=== PATIENT | male | born 1955 | race Caucasian/White ===

== ENCOUNTER → 2017-08-13 | Outpatient (CLI) | payer MEDICARE, OTHER ==
[2017-08-13 12:19] LABS: Albumin 4.2 g/dL (3.5-5.0); Potassium 4.2 mmol/L (3.5-5.1); Total Bilirubin 0.7 mg/dL (0.2-1.3); Total Protein 7.1 g/dL (6.3-8.2)
--- NOTE | 2017-08-13 15:33 | XR ---
EXAMINATION TYPE: XR sacroiliac joint comp BILAT DATE OF EXAM: 08/13/2017 COMPARISON: NONE HISTORY: Pain TECHNIQUE: 3 views of the sacroiliac joints are submitted. FINDINGS: There is mild narrowing of the right-sided sacroiliac joint. The left-sided sacroiliac join t appears to be widely patent. No evidence for erosive change or abnormal widening. Sacrum appears to be grossly intact. Bilateral hip prostheses. No bony destructive process. IMPRESSION: Mild degenerative narrowing right SI joint.
--- NOTE | 2017-08-13 15:48 | MR ---
EXAMINATION TYPE: MR cervical spine wo/w con DATE OF EXAM: 08/13/2017 1:50 PM COMPARISON: January 31, 2016 HISTORY: cervicalgia CONTRAST: The patient was injected with 10 mL intravenous Gadavist gadolinium contrast. Multiplanar MultiSpin echo imaging of the cervical spine was performed. C2-C3: No evidence for degenerative disc disease. No disc bulge/herniation or protrusion. No Canal stenosis. Foramina are patent bilaterally. C3-C4: Disc osteophyte complexes noted posterior centrally at this level. Mild effacement ventral the liban sac. Mild distortion ventral cervical spinal cord. No distinct cord signal abnormalities seen. No central stenosis. Mild uncovertebral joint and facet arthropathy narrowing the bilateral neural fora bre. C4-C5: There is evidence of degenerative disc disease. Posterocentral disc bulge and change from prio r study. Mild effacement ventral thecal sac. No evidence for cord contact or central stenosis. Mild r ight neural foraminal encroachment. C5-C6: Postoperative changes of anterior cervical discectomy and fusion. Posterocentral and to the ri ght osteophytic ridging is noted mildly effacing the ventral thecal sac. There is mild right foramina l encroachment. No evidence for central stenosis. C6-C7:there is mild broad-based posterior discussed of a complex with uncovertebral joint and facet a rthropathy which mildly encroaches onto the left neuroforamen. No significant spinal canal stenosis. C7-T1: No evidence for degenerative disc disease. No disc bulge/herniation or protrusion. No Canal stenosis. Foramina are patent bilaterally. No cervical spine fracture. There is normal alignment. Cervical spinal cord is of normal signal. C raniovertebral junction relationships are within normal limits. No pathologic enhancement. IMPRESSION: 1. Again noted are ACDF changes at C5-6. Posterior osteophytic ridging is stable. 2. Stable disc bulging and disc endplate complex as discussed above at C3-4 and C4-5. See above.
--- NOTE | 2017-08-13 16:49 | MR ---
EXAMINATION TYPE: MR lumbar spine wo con DATE OF EXAM: 08/13/2017 COMPARISON: NONE HISTORY: Low back pain CONTRAST: 0 mL intravenous Gadavist. TECHNIQUE: Multiplanar, multisequence images of the lumbar spine were acquired. FINDINGS: Cord terminates at the L1 level. L5-S1: Broad-based disc bulge has mild anterior thecal sac compression. Facet hypertrophy and ligamen cris flavum laxity is present with mild left posterior lateral thecal sac compression. No spinal canal stenosis is present. Neural foramen are patent. L4-L5: Disc uncovering is present. There is facet hypertrophy greater on the left with posterior late ral thecal sac compression. Some impingement of the right foramen is present from facet hypertrophy. No AP spinal canal stenosis is present. L3-L4: Mild disc bulge has anterior thecal sac contact. Facet hypertrophy is present. No spinal canal stenosis is present. There is disc space narrowing. L2-L3: Broad-based disc bulge is present with moderate anterior thecal sac compression. No AP spinal canal stenosis is present. Neural foramen are patent. L1-L2: There is loss of disc height through this level. Broad-based disc bulge has mild anterior thec al sac compression. Central focal bulging has inferior displacement compatible some subligamentous di sc herniation No AP spinal canal stenosis present. Ligamentum flavum laxity and facet hypertrophy is posterior lateral thecal sac compression contributing to some mild canal narrowing. T12-L1: Minimal disc bulge is present with anterior thecal sac contact. No spinal canal stenosis is p resent. Neural foramen are patent. IMPRESSION: 1. Multilevel disc bulging appears greatest at L2-3 with moderate anterior thecal sac compression. 2. Multilevel facet hypertrophy. This is having posterior lateral thecal sac compression at multiple levels. This may be contributing to some canal narrowing at L1-2. 3 loss of disc height L3-4. There i s diffuse disc desiccation throughout the lumbar spine. 3. Findings appear stable from 11/03/2015
== END | disposition home or self-care (01) ==
LOC: RADMRIMAIN 11:42
PROVIDERS: ATTEND Anesthesiology Pain Medicine
DX: M99.71 Connective tissue and disc stenosis of intervertebral foramina of cervical region (principal); M50.221 Other cervical disc displacement at C4-C5 level; M50.321 Other cervical disc degeneration at C4-C5 level; M46.92 Unspecified inflammatory spondylopathy, cervical region; M51.16 Intervertebral disc disorders with radiculopathy, lumbar region; G95.29 Other cord compression; M53.3 Sacrococcygeal disorders, not elsewhere classified; M62.830 Muscle spasm of back; S39.012D Strain of muscle, fascia and tendon of lower back, subsequent encounter; Z98.890 Other specified postprocedural states; Z79.891 Long term (current) use of opiate analgesic
CPT/HCPCS: 80053; 72202; 72148; 72156; 36415; A9581

== ENCOUNTER → 2018-10-20 | Outpatient (CLI) | payer MEDICARE, OTHER ==
--- NOTE | 2018-10-20 13:25 | MR ---
EXAMINATION TYPE: MR lumbar spine wo con DATE OF EXAM: 10/20/2018 COMPARISON: 11/03/2015 HISTORY: Low bck pain TECHNIQUE: T1 and T2 axial and sagittal images of the lumbar spine are submitted. FINDINGS: There is no abnormal signal seen within the visualized spinal cord or paraspinal soft tissu es. At T12-L1 there is severe degenerative disc disease and broad-based central disc bulging. No spinal c ord contact. Mild effacement of thecal sac. Facet arthropathy noted. Neural foramina remain patent. At L1-2 there is severe degenerative disc disease with 4 mm retrolisthesis of L1 relative to L2 which is retrospectively stable. Discogenic marrow changes are seen and there is broad-based disc protrusi on with moderate effacement of thecal sac and mild central stenosis. Moderate bilateral foraminal enc roachment. At L2-3 there is moderate to severe degenerative disc disease with broad-based disc bulging or protru mira. Moderate effacement of thecal sac. Ligament flavum hypertrophy and facet arthropathy contribute to mild central stenosis and mild bilateral foraminal encroachment. At L3-4 there is severe degenerative disc disease with broad-based central disc protrusion and mild e ffacement of thecal sac. There is facet arthropathy and ligamentum flavum hypertrophy. There is very mild neural foraminal encroachment. Borderline to mild central stenosis. 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 At L4-5 there is degenerative disc disease with advanced facet arthropathy and hypertrophic change of the ligamentum flavum. Circumferential disc bulging is seen there is mild to moderate bilateral fora corbin encroachment. There may be a slight anterolisthesis of 1 to 2 mm of L4 relative to L5 retrospec tively stable. Findings are suggestive of mild central stenosis. At L5-S1 there is degenerative disc disease with focal central and left paracentral disc small hernia tion and mild effacement of thecal sac. There is mild bilateral foraminal encroachment and facet arth ropathy. Finding is stable. IMPRESSION: 1. Multilevel severe degenerative disc disease with multilevel disc protrusions or bulging resulting in multilevel canal stenosis which appears to be stable relative to the prior exam. 2. Multilevel foraminal encroachment. 3. Stable retrolisthesis L1 on L2 unchanged from prior exam. Measures approximately 4 mm. 4. Stable central and left paracentral focal disc herniation L5-S1 unchanged from the prior exam. 5. 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
--- NOTE | 2018-10-20 22:51 | MR ---
MRI CERVICAL SPINE: CLINICAL HISTORY: Cervicalgia. Headache with pain and lack of motion range for 12 years with history of prior surgery per patient. TECHNIQUE: Multiplanar, multisequence imaging of the cervical spine is performed without IV contrast as ordered. COMPARISON: MRI cervical spine August 13, 2017 FINDINGS: Sagittal images of the cervical spine show the craniocervical junction to remain within nor mal limits. The cervical and upper thoracic spinal cord remains normal in course, caliber, and signa l. Vertebral alignment is stable and anatomic. Artifact from anterior fusion plate C5-C6 level is re demonstrated. Vertebral bodies and disc space heights are fairly well maintained above and below surg ical levels. Bone marrow signal intensity is preserved. Axial images C2-C3 level redemonstrated right-sided uncovertebral facet degenerative change causing m ild right-sided neural foraminal narrowing. No significant change from prior. Axial images at C3-C4 level redemonstrated uncovertebral facet degenerative changes bilaterally with posterior spur disc complex effacing the anterior thecal sac and causing moderate left greater than r ight bilateral neural foraminal narrowing. No significant change from prior. Axial images at C4-C5 level shows central disc protrusion effaces the anterior thecal sac with uncove rtebral facet degenerative changes causing mild bilateral neural foraminal narrowing. No significant change from prior. Axial images at C5-C6 levels artifact from surgical hardware with uncovertebral facet degenerative ch anges causing mild right-sided neural foraminal narrowing. No significant change from prior. Axial images at C6-C7 level broad-based left paracentral/foraminal disc protrusion effaces the boyd lateral thecal sac and causing moderate left-sided neural foraminal narrowing. No significant change from prior. Axial images at C7-T1 level remain within normal limits. IMPRESSION: Overall stable findings, postsurgical changes C5-C6 level with stable and satisfactory al ignment. Multilevel degenerative changes are redemonstrated without significant change from prior
== END ==
LOC: RADMRIMAIN 12:01
PROVIDERS: ATTEND Physician Assistant
DX: M47.812 Spondylosis without myelopathy or radiculopathy, cervical region (principal); M48.061 Spinal stenosis, lumbar region without neurogenic claudication; M51.36 Other intervertebral disc degeneration, lumbar region; M43.12 Spondylolisthesis, cervical region; M51.26 Other intervertebral disc displacement, lumbar region
CPT/HCPCS: 72141; 72148

== ENCOUNTER → 2023-01-02 | Outpatient (CLI) | payer MEDICARE, OTHER ==
--- NOTE | 2023-01-02 18:20 | CT ---
EXAMINATION TYPE: CT cervical spine wo con CT DLP: 1710.2 mGycm, Automated exposure control for dose reduction was used. DATE OF EXAM: 01/02/2023 5:33 PM COMPARISON: Multiple MR cervical spine with most recent 10/20/2018 CLINICAL INDICATION:Male, 67 years old with history of M54.2 CERVICALGIA; PHH, Fall x4mo ago, Pt c/o ongoing neck pain. TECHNIQUE: Axial CT images from the skull base to the inferior aspect of T2 we obtained without intra venous contrast. Coronal and sagittal reformatted images were also reviewed. FINDINGS: Fracture: None. Osseous structures: Postsurgical changes from anterior cervical fusion of C5-C6 with partial fusion c hanges demonstrated. Hardware appears intact. Multilevel degenerative disc disease changes with endpl ate spurring and anterior osteophytosis. Multilevel facet arthropathy. Vertebral alignment: Within normal limits. Spinal canal/Neural Foramina: Disc osteophyte complexes at C3-C4 with at least mild spinal canal sten osis. Uncovertebral joint at this level resulting in moderate bilateral neural foraminal stenosis. Br oad-based disc bulge suggested at C2-C3 without significant effacement of the intrathecal sac. Uncove rtebral joint hypertrophy with right facet arthropathy contributing to moderate right neural foramina l stenosis. Disc bulge with mild effacement of the ventral thecal sac. Uncovertebral joint hypertroph y with moderate right neural foraminal stenosis. Posterior disc ossify complex with uncovertebral grace nt hypertrophy with. There is mild central canal stenosis with moderate right neural foraminal stenos is. Redemonstration of central disc protrusion with mild effacement of anterior thecal sac at C6-C7. Neck soft tissues: Prevertebral soft tissues are within normal limits. Other: The airway is patent. The lung apices are clear. Mucosal thickening of the left maxillary sinu s. The mastoid air cells are clear. IMPRESSION: 1. No evidence of cervical spine fracture. 2. Postsurgical changes from ACDF C5-C6. Hardware appears intact. 3. Mild to moderate multilevel degenerative disc disease with uncovertebral joint hypertrophy and fac et arthropathy.
== END | disposition home or self-care (01) ==
LOC: RADMRIMAIN 17:00
PROVIDERS: ATTEND Neurological Surgery
DX: M50.320 Other cervical disc degeneration, mid-cervical region, unspecified level (principal); M47.812 Spondylosis without myelopathy or radiculopathy, cervical region
CPT/HCPCS: 72125; 72141